=== PATIENT | male | born 1935 | race Caucasian/White ===

== ENCOUNTER 2017-11-24 09:28 | Day surgery (SDC) | payer OTHER ==
[2017-11-19 14:58] VITALS: BMI 23.6
[2017-11-24] MEDS ORDERED: PROPOFOL 20 ML ONE ×2 (10:22)
[2017-11-24 12:21] VITALS: BP 144/78; PULSE 65; TEMP 97.4
--- NOTE | 2017-11-27 16:34 | PATH ---
Surgical Pathology Report Patient Name: JAZMIN CORTEZ [facility] [place]. Rec. #: [id number] /Age/Gender: 1935 (Age: 82) / M Account: [id number] Location: [place] Pathology Taken: 11/24/2017 Received: 11/24/2017 Reported: 11/27/2017 Physicians: Aristeo Troy M.D. Specimen(s) Received A: ANTRUM B: BODY Clinical History GERD, weight loss, normal, Anemia Postoperative Diagnosis: Gastritis Final Diagnosis A. 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 Immunostain shows numerous H pylori organisms. B. 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 Immunostain shows numerous H pylori organisms. Electronically Signed Marely Sands M.D. Gross Description A. Received in formalin, labeled "antrum" are multiple agarwal, irregular portions of soft tissue ranging from 0.1-0.2 cm. in greatest dimension, with an aggregate of 0.5 x 0.4 x 0.2 cm. The specimens are submitted in toto in one cassette. B. Received in formalin, labeled "body" are 2 agarwal, irregular portions of soft tissue measuring 0.2 and 0.3 cm. in greatest dimension. The specimens are submitted in toto in one cassette. MLGEORGIE/11/24/2017 tj/11/24/2017
== END 2017-11-24 12:22 | disposition home or self-care (01) ==
LOC: FASU-ENDO 09:28
PROVIDERS: ATTEND Internal Medicine Gastroenterology
PROC: 0DB68ZX Excision of Stomach, Via Natural or Artificial Opening Endoscopic, Diagnostic (ICD-10-PCS; principal; 2017-11-24 11:07)
DX: K29.50 Unspecified chronic gastritis without bleeding (principal); B96.81 Helicobacter pylori [H. pylori] as the cause of diseases classified elsewhere; R93.3 Abnormal findings on diagnostic imaging of other parts of digestive tract; K31.89 Other diseases of stomach and duodenum
CPT/HCPCS: 88305-TC; 88342-TC